=== PATIENT | female | born 1975 | race Caucasian/White ===

== ENCOUNTER → 2017-01-03 | Outpatient (CLI) | payer BC | LOC: MC.RAD 14:17 | DX: Z12.31 Encounter for screening mammogram for malignant neoplasm of breast (principal) ==

== ENCOUNTER 2017-11-21 15:00 | Outpatient (RCR) | payer BC | END 2018-01-01 | disposition home or self-care (01) | LOC: WSC | DX: M25.512 Pain in left shoulder (principal); M62.838 Other muscle spasm ==

== ENCOUNTER → 2018-01-04 | Outpatient (CLI) | payer BC | LOC: MC.RAD 14:17 | DX: Z12.31 Encounter for screening mammogram for malignant neoplasm of breast (principal) ==

== ENCOUNTER 2018-09-15 15:45 | Outpatient (RCR) | payer BC | END 2018-11-12 | LOC: MKS.ESL.PT | DX: M22.41 Chondromalacia patellae, right knee (principal); Z96.651 Presence of right artificial knee joint ==

== ENCOUNTER → 2020-06-03 | Outpatient (CLI) | payer BC | LOC: MC.RAD 16:38 | DX: Z12.31 Encounter for screening mammogram for malignant neoplasm of breast (principal); N63.10 Unspecified lump in the right breast, unspecified quadrant ==

== ENCOUNTER → 2020-06-06 | Outpatient (CLI) | payer BC | LOC: MC.RAD 10:49 | DX: N60.01 Solitary cyst of right breast (principal) ==

== ENCOUNTER → 2020-07-17 | Outpatient (CLI) | payer BC | LOC: COL.PUL 07-08 08:00 | DX: R07.89 Other chest pain (principal); Z87.891 Personal history of nicotine dependence ==

== ENCOUNTER → 2020-12-24 | Outpatient (CLI) | payer BC | LOC: MC.RAD 12:54 | DX: N63.10 Unspecified lump in the right breast, unspecified quadrant (principal) ==

== ENCOUNTER 2021-05-06 10:15 | Outpatient (RCR) | payer BC | END 2021-05-22 | disposition home or self-care (01) | LOC: MKS.ESL.PT | DX: M22.41 Chondromalacia patellae, right knee (principal); M22.42 Chondromalacia patellae, left knee | CPT/HCPCS: G0283-GP ==

== ENCOUNTER 2021-07-16 09:00 | Outpatient (RCR) | payer BC | END 2021-07-20 | disposition home or self-care (01) | LOC: MKS.ESL.PT | DX: M41.86 Other forms of scoliosis, lumbar region (principal) | CPT/HCPCS: G0283-GP ==

== ENCOUNTER → 2021-07-23 | Outpatient (CLI) | payer BC | LOC: MC.RAD 11:28 | DX: Z12.31 Encounter for screening mammogram for malignant neoplasm of breast (principal) ==

== ENCOUNTER 2022-07-22 08:03 | Outpatient (RCR) | payer BC | END 2022-08-20 | disposition home or self-care (01) | LOC: MKS.ESL.PT | DX: M22.41 Chondromalacia patellae, right knee (principal); Z47.1 Aftercare following joint replacement surgery ==

== ENCOUNTER → 2022-09-14 | Outpatient (CLI) | payer BC | LOC: MC.RAD 12:53 | DX: Z12.31 Encounter for screening mammogram for malignant neoplasm of breast (principal) ==

== ENCOUNTER 2023-01-04 12:45 | Outpatient (RCR) | payer BC | END 2023-01-20 | disposition home or self-care (01) | LOC: WSPT | DX: M54.50 Low back pain, unspecified (principal) ==

== ENCOUNTER → 2023-02-16 | Outpatient (CLI) | payer BC | LOC: MHCPAIN 11:46 | DX: M54.50 Low back pain, unspecified (principal); M51.36 Other intervertebral disc degeneration, lumbar region; M25.561 Pain in right knee; Z96.651 Presence of right artificial knee joint; M79.18 Myalgia, other site | CPT/HCPCS: G0463 ==

== ENCOUNTER → 2023-03-15 | Outpatient (CLI) | payer BC | LOC: MHCPAIN 10:47 | DX: M54.50 Low back pain, unspecified (principal); M51.36 Other intervertebral disc degeneration, lumbar region; M79.18 Myalgia, other site; M25.561 Pain in right knee | CPT/HCPCS: G0463 ==

== ENCOUNTER → 2023-04-22 | Outpatient (CLI) | payer BC | LOC: COL.RAD 07:12 | DX: R10.31 Right lower quadrant pain (principal) | CPT/HCPCS: Q9967 ==

== ENCOUNTER → 2023-11-15 | Outpatient (CLI) | payer BC | LOC: MC.RAD 09:30 | DX: Z12.31 Encounter for screening mammogram for malignant neoplasm of breast (principal); N63.14 Unspecified lump in the right breast, lower inner quadrant ==